=== PATIENT | female | born 1970 | race Caucasian/White ===

== ENCOUNTER 2019-04-24 19:29 | Emergency (ER) | payer BC ==
[~2019-04-24] VITALS: Ht 175.3 cm; Wt 56.7 kg
--- NOTE | 2019-04-24 20:54 | NUR ---
Patient discharged to home in stable conditon WITH FAMILY TAKING PATIENT HOME. Written and verbal after care instructions given. Patient verbalizes understanding of instructions. WALKED OUT OF ER WITH NO DISTRESS NOTED
[2019-04-24 20:56] VITALS: BP 142/80
== END 2019-04-24 20:56 | disposition home or self-care (01) ==
LOC: ER 19:29
DX: S50.11XA Contusion of right forearm, initial encounter (principal); Z88.0 Allergy status to penicillin; Z88.1 Allergy status to other antibiotic agents; W18.30XA Fall on same level, unspecified, initial encounter; Y93.89 Activity, other specified; Y92.89 Other specified places as the place of occurrence of the external cause; Y99.8 Other external cause status
CPT/HCPCS: 73090; A4663